=== PATIENT | male | born 1945 | race African-American/Black ===

== ENCOUNTER 2016-07-13 08:54 | Day surgery (SDC) | payer MEDICARE, OTHER ==
[2016-07-11 11:22] LABS: HEMOGLOBIN 11.3 g/dL (13.6-17.8)
[2016-07-11 11:23] LABS: HEMATOCRIT 33.1 % (40.0-51.0)
--- NOTE | ~2016-07-13 | OP ---
Record Of Operation [facility] [address] [place]. [address] NAME: NISHANT CHRISTIANSON : 47 STATUS : [facility]#: [id number] AGE: 70 ADM/REG DATE : 07/13/16 MR#: [id number] REPORT SERV DATE: 07/14/16 DICTATED BY: LUCAS GARCIA DATE: 07/13/16 REPORT STATUS : Draft TRANSCRIBED BY: MODStormy DATE: 07/13/16 DATE OF PROCEDURE: 07/13/2016 PREOPERATIVE DIAGNOSIS: Chronic kidney disease, stage IV. POSTOPERATIVE DIAGNOSIS: Chronic kidney disease, stage IV. PROCEDURE: Left radiocephalic arteriovenous fistula. SURGEON: Lucas Garcia M.D. IMAGE SCIENTIST: Chasity Josue MD. ANESTHESIA: MAC plus local and block. INDICATIONS: The patient is a 70-year-old gentleman with a history of chronic kidney disease, stage IV, who needs longer term dialysis access. It is anticipated that he will need dialysis in the near future, so he was consented for a left upper extremity arteriovenous fistula or graft. DESCRIPTION OF PROCEDURE: After informed consent was obtained, the patient was taken to the operating room and placed in the supine position on the operating table. A block had previously been administered. The patient's left upper extremity was prepped and draped in the usual sterile fashion. An ultrasound examination demonstrated that the left cephalic vein measured about 4 mm in diameter, as did the radial artery. The outflow was via the basilic vein in the upper arm cephalic vein was small. Thus, longitudinal skin incision was made along the wrist. Cautery was used to deepen the incision. I dissected out the cephalic vein as well as the radial artery. I systemically heparinized. I ligated and divided the cephalic vein at the confluence point. I flushed it to make sure that it was patent and not kinked. I controlled the radial artery and created a longitudinal arteriotomy. I sewed the end of the cephalic vein onto the side of the radial artery. I flushed of air and debris before tying down the sutures. Afterwards, there was a good thrill within the fistula. I washed out the wound, achieved hemostasis, and closed the wound in layers. The patient tolerated the procedure well without any intraprocedural complications noted. TELEVISION PRESENTER/CIARAN Lucas Garcia M.D. / [id number] CC: Record Of Operation [facility] [address] [place]. [address] NAME: NISHANT CHRISTIANSON : 47 STATUS : [facility] PAT#: [id number] AGE: 70 ADM/REG DATE : 07/13/16 MR#: [id number] REPORT SERV DATE: 07/14/16 DICTATED BY: LUCAS GARCIA DATE: 07/13/16 REPORT STATUS : Draft TRANSCRIBED BY: CIARAN DATE: 07/13/16 Lor Ashby M.D. Lindsay C Crawford, M.D.
[~2016-07-13 08:54] MED LIST: ASAB PO; HYDRALAZINE100 MG PO; HYT5 PO; HYZAAR1 TAB PO; MULTI-VIT HP PO; PROSCAR5 PO; TAZTIA X3 PO; Z300 PO
[2016-07-13 09:56] LABS: A/G RATIO 0.6 (0.7-1.9); ALBUMIN 2.9 G/DL (3.5-5.0); ALKALINE PHOSPHATASE 100 U/L (45-117); CALCIUM, SERUM 9.6 MG/DL (8.5-10.4); CHLORIDE, SERUM 108 MMOL/L (96-112); CO2 (CARBON DIOXIDE) 22 MMOL/L (24-34); GLUCOSE, SERUM 95 MG/DL (60-99); POTASSIUM, SERUM 3.6 MMOL/L (3.5-5.3); SGOT(AST) 26 U/L (5-40); SGPT(ALT) 31 U/L (5-65); SODIUM, SERUM 143 MMOL/L (135-148); TOTAL BILIRUBIN 0.3 MG/DL (0-1.2); TOTAL PROTEIN 7.4 G/DL (6.0-8.5)
[2016-07-13 09:57] LABS: BUN (BLOOD UREA NITROGEN) 42 MG/DL (6-23); CREATININE 5.48 MG/DL (0.70-1.30); GFR AFRICAN AMERICAN 11 ML/MIN (>=60); GFR NON AFRICAN AMERICAN 10 ML/MIN (>=60); GLOBULIN 4.5 G/DL (2.5-4.1)
== END 2016-07-13 21:18 | disposition home or self-care (01) ==
LOC: SDC 08:54
PROVIDERS: Surgery
PROC: 031C0ZF Bypass Left Radial Artery to Lower Arm Vein, Open Approach (ICD-10-PCS; principal; 2016-07-13 10:45)
DX: I12.9 Hypertensive chronic kidney disease with stage 1 through stage 4 chronic kidney disease, or unspecified chronic kidney disease (principal); N18.4 Chronic kidney disease, stage 4 (severe); D64.9 Anemia, unspecified; J44.9 Chronic obstructive pulmonary disease, unspecified; B19.20 Unspecified viral hepatitis C without hepatic coma; F17.210 Nicotine dependence, cigarettes, uncomplicated; M10.9 Gout, unspecified; Z91.018 Allergy to other foods; Z91.011 Allergy to milk products; Z90.89 Acquired absence of other organs
CPT/HCPCS: 80053; 85014; 85018; 93005; J0690; J2250; J2795; J3010